=== PATIENT | female | born 2000 | race Hispanic/Latino ===

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

== ENCOUNTER 2022-10-18 15:55 | Emergency (ER) | payer MEDICAID ==
[~2022-10-18] VITALS: Ht 170.2 cm; Wt 81.6 kg
[2022-10-18] MEDS ORDERED: HYDROCODONE/ACETAMINOPHEN 10/325 MG TAB PO ONE (16:30)
[2022-10-18] MEDS ORDERED: CLINDAMYCIN IVPB 600MG/50ML 50 ML IV SCH (16:30)
[2022-10-18] MEDS ORDERED: MORPHINE 4 MG SYG IVP ONE (16:30)
[2022-10-18] MEDS ORDERED: TETANUS/DIPHTHERIA TOXOID [ADULT] 0.5 ML VIAL IM ONE (16:30)
[2022-10-18] MEDS ORDERED: ONDANSETRON 4MG INJ IVP ONE (16:30)
[2022-10-18] MEDS ORDERED: MORPHINE 4 MG SYG ONE (16:38)
[2022-10-18 16:42] LABS: BASOPHILS % (AUTO) 0.2 % (0.0-5.0); EOSINOPHILS % (AUTO) 1.5 % (0.0-8.0); HEMATOCRIT 39.8 % (36-48); LYMPHOCYTES % (AUTO) 11.4 % (21.0-51.0); MEAN CORPUSCULAR HEMOGLOBIN 29.6 pg (27.0-33.0); MEAN CORPUSCULAR HGB CONC 33.4 g/dL (32.0-36.0); MEAN CORPUSCULAR VOLUME 88.4 fL (80-100); MONOCYTES % (AUTO) 4.9 % (3.0-13.0); NEUTROPHILS % (AUTO) 81.4 % (40.0-77.0); PLATELET COUNT (AUTO) 350 K/uL (130-400); RED CELL DISTRIBUTION WIDTH 13.6 % (11.0-15.5); WHITE BLOOD COUNT (AUTO) 14.3 K/uL (4.8-10.8)
[2022-10-18 16:43] LABS: APPEARANCE,URINE CLOUDY (CLEAR); BILIRUBIN,URINE NEGATIVE (NEGATIVE); COLOR,URINE YELLOW (YELLOW); GLUCOSE, URINE (UA) NEGATIVE (NEGATIVE); KETONES,URINE NEGATIVE (NEGATIVE); LEUKOCYTE ESTERASE ,URINE 250 Leu/uL (NEGATIVE); NITRATE,URINE NEGATIVE (NEGATIVE); OCCULT BLOOD,URINE NEGATIVE (NEGATIVE); PROTEIN,URINE 20 mg/dL (NEGATIVE)
[2022-10-18 16:49] LABS: HCG,QUALITATIVE URINE NEGATIVE (NEGATIVE)
[2022-10-18 16:51] VITALS: BP 119/59
[2022-10-18 16:52] LABS: MUCUS,URINE RARE LPF (None Seen); SQUAMOUS EPITHELIAL CELL,UR MOD /HPF (0-2)
[2022-10-18 16:56] LABS: CREATININE 0.7 mg/dL (0.5-1.5); POTASSIUM 4.3 mmol/L (3.5-5.1)
[2022-10-18 17:01] LABS: ALBUMIN 4.3 g/dL (3.5-5.0); CRP QUANTITATIVE 5.3 mg/L (0.00-9.0); TOTAL PROTEIN, SERUM 8.1 g/dL (6.0-8.3)
[2022-10-18] MEDS ORDERED: CEFU500T67 PO (17:26)
[2022-10-18] MEDS ORDERED: TRAM1TAB2 PO (17:26)
[2022-10-18] MEDS ORDERED: IBUP-2071 PO (17:28)
[2022-10-18] MEDS ORDERED: CEFTRIAXONE 1G VIAL IVP ONE (17:30)
== END 2022-10-18 17:59 | disposition home or self-care (01) ==
LOC: EDH 15:55
DX: S71.111A Laceration without foreign body, right thigh, initial encounter (principal); S70.11XA Contusion of right thigh, initial encounter; N39.0 Urinary tract infection, site not specified; Z98.890 Other specified postprocedural states; W26.0XXA Contact with knife, initial encounter; Y93.89 Activity, other specified; Y92.89 Other specified places as the place of occurrence of the external cause; Y99.8 Other external cause status
CPT/HCPCS: 99285; 96365; 96375 ×2; 80053; 85025; 87070; 87076; 87088; 83605; 86140; 81001; 81025; 36415; 90714; 73552; 76882; 90471; J0696; J2405; J2270; J3490; 96361; 96372; 96374